=== PATIENT | female | born 1985 | race African-American/Black ===

== ENCOUNTER 2020-04-08 18:47 | Emergency (ER) | payer SELFPAY ==
[2020-04-08] MEDS ORDERED: Bupivacaine 0.5% 10 ML VIAL ONE (19:05)
== END 2020-04-08 19:33 | disposition home or self-care (01) ==
LOC: ERS 18:47
DX: K08.89 Other specified disorders of teeth and supporting structures (principal); F41.9 Anxiety disorder, unspecified; F32.9 Major depressive disorder, single episode, unspecified
CPT/HCPCS: 64400; J3490